=== PATIENT | male | born 1980 | race Caucasian/White ===

== ENCOUNTER 2017-10-13 17:52 | Observation (INO) | payer SELFPAY ==
[~2017-10-13] VITALS: Ht 167.6 cm; Wt 76.0 kg
[~2017-10-13 17:52] MED LIST: 1-ME1LIQ PO; ALUM5LIQ PO; CLON.2 PO; DICY1TAB26 PO; ENAL10TA7 PO; HYDR12.56 PO; METH5SOL3 PO; MINO100T PO; MOBI15TA PO; NAPR550 PO; OXYC15TA PO; RANI150 PO
[2017-10-13 17:56] VITALS: BP 174/106; PULSE 70; RESP 20; TEMP 98.7; O2SAT 98
[2017-10-13] MEDS ORDERED: CLON0.2T PO (18:21)
[2017-10-13] MEDS ORDERED: HYDR12.57 PO (18:21)
[2017-10-13] MEDS ORDERED: ROXI30TA14 PO (18:21)
[2017-10-13] MEDS ORDERED: ATEN25TA PO (18:21)
[2017-10-13] MEDS ORDERED: ENAL20TA81 PO (18:21)
--- NOTE | 2017-10-13 18:41 | RADRPT ---
EXAM DATE/TIME: 10/13/2017 18:14 [facility] COMPARISON: No previous studies available for comparison. INDICATIONS : Chest pain. MEDICAL HISTORY : Hypertension. SURGICAL HISTORY : None. ENCOUNTER: Initial ACUITY: 1 day PAIN SCORE: 7/10 LOCATION: Bilateral chest FINDINGS: PA and lateral views of the chest demonstrate the lungs to be symmetrically aerated without evidence of mass, infiltrate or effusion. The cardiomediastinal contours are unremarkable. Osseous structure s are intact. CONCLUSION: No acute disease. Christiano Torres MD on October 13, 2017 at 18:38 Board Certified Radiologist. This report was verified electronically.
[2017-10-13 19:02] LABS: AUTOMATED NEUTROPHIL # 3.1 TH/MM3 (1.8-7.7); BASOPHIL % 0.4 % (0.0-2.0); EOSINOPHIL # 0.1 TH/MM3 (0-0.4); EOSINOPHIL % 1.6 % (0.0-4.0); HEMATOCRIT 38.7 % (39.0-51.0); HEMOGLOBIN 13.3 GM/DL (13.0-17.0); LYMPH % 40.3 % (9.0-44.0); LYMPHOCYTE # 2.6 TH/MM3 (1.0-4.8); MEAN CELL VOLUME 82.3 FL (80.0-100.0); MEAN CORPUSCULAR HEMOGLOBIN 28.2 PG (27.0-34.0); MEAN CORPUSCULAR HGB CONC 34.2 % (32.0-36.0); MEAN PLATELET VOLUME 7.1 FL (7.0-11.0); MONO % 8.5 % (0.0-8.0); MONOCYTE # 0.5 TH/MM3 (0-0.9); NEUT % 49.2 % (16.0-70.0); PLATELET COUNT 180 TH/MM3 (150-450); RED CELL DISTRIBUTION WIDTH 17.5 % (11.6-17.2); WHITE BLOOD COUNT 6.3 TH/MM3 (4.0-11.0)
[2017-10-13] MEDS ORDERED: SODIUM CHLOR 0.9% 1000 ML INJ 1,000 ML IV ONE (19:30)
[2017-10-13] MEDS ORDERED: PROCHLORPERAZINE INJ 10 MG/2 ML VIAL IV PUSH ONE (19:30)
[2017-10-13] MEDS ORDERED: diphenhydrAMINE HCL 50 MG/ML VIAL IV PUSH ONE (19:30)
[2017-10-13 19:32] LABS: ALBUMIN 3.7 GM/DL (3.4-5.0); AST (GOT) 38 U/L (15-37); BICARBONATE 26.2 MEQ/L (21.0-32.0); BLOOD UREA NITROGEN 14 MG/DL (7-18); CALCIUM 8.9 MG/DL (8.5-10.1); CHLORIDE 110 MEQ/L (98-107); CREATININE 0.85 MG/DL (0.60-1.30); GLOMERULAR FILTRATION RATE 101 ML/MIN (>89); GLUCOSE,RANDOM 69 MG/DL (74-106); INTERNATIONAL NORMALIZED RATIO 1.1 RATIO; MAGNESIUM 2.2 MG/DL (1.5-2.5); PROTHROMBIN TIME - PATIENT 10.9 SEC (9.8-11.6); SODIUM (NA) 143 MEQ/L (136-145)
[2017-10-13 19:33] LABS: ALT (GPT) 80 U/L (12-78)
[2017-10-13 19:37] LABS: ALKALINE PHOSPHATASE 68 U/L (45-117); TOTAL BILIRUBIN ADULT 0.3 MG/DL (0.2-1.0); TOTAL PROTEIN 7.5 GM/DL (6.4-8.2); TROPONIN I LESS THAN 0.02 NG/ML (0.02-0.05)
--- NOTE | 2017-10-13 19:37 | PD ---
HPI Chief Complaint: Syncope/Near-Syncope Time Seen by Provider: 19:09 Travel History International Travel<30 days: No Contact w/Intl Traveler<30days: No Traveled to known affect area: No History of Present Illness HPI 37-year-old male presents to the emergency department for evaluation of chest pain, headache, syncopal episode. Patient states that he has been having left- sided chest pain that started this morning. He states it is sharp and stabbing. He denies radiation of the pain. Estimating factors deep breathing. No alleviating factors. He currently rates the chest pain 10/10. Patient also reports a bifrontal headache behind his eyes that started this morning as well. He states he has been getting headaches frequently recently. This headache started this morning, gradually. He currently rates a 10/10, throbbing. No radiation. He states that just prior to arrival, he walked into the kitchen to ask a question and he had a syncopal episode. He was at a standing position. Patient does state that he uses IV drugs, last time was 1 week ago when he used IV Dilaudid. Patient states he has a history of PE. However on further questioning, he states he was here for it. He was here previously with a elevated d-dimer, but he left AMA before CT could be completed. He has no history of actual PE. Patient is not on anticoagulants. He does report history of hypertension. He denies any fevers or chills. No abdominal pain. No vomiting or diarrhea. Moderate severity. PFSH Past Medical History Anxiety: Yes Diminished Hearing: No Hypertension: Yes Musculoskeletal: Yes (Chronic back pain) ?: Not Past Surgical History Surgical History: No Previous Surgery Family History Family Hypercholesterolemia: Yes Social History Alcohol Use: Yes (OCCASIONAL) Tobacco Use: Yes (2 PK A DAY) Substance Use: Yes (dilaudid (last used last week)) Allergies-Medications (Allergen,Severity, Reaction): Coded Allergies: No Known Allergies (Verified , 11/20/15) Reported Meds & Prescriptions Reported Meds & Active Scripts Active Reported Hydrochlorothiazide 12.5 Mg Cap 12.5 Mg PO DAILY Atenolol 25 Mg Tab 12.5 Mg PO DAILY Roxicodone (Oxycodone HCl) 30 Mg Tab 30 Mg PO Q8H PRN Vasotec (Enalapril Maleate) 20 Mg Tab 40 Mg PO DAILY Clonidine (Clonidine HCl) 0.2 Mg Tab 0.2 Mg PO BID Review of Systems Except as stated in HPI: all other systems reviewed are Neg Physical Exam Narrative GENERAL: Well-nourished, well-developed male patient, afebrile. SKIN: Focused skin assessment warm/dry. HEAD: Normocephalic. Atraumatic EYES: No scleral icterus. No injection or drainage. NECK: Supple, trachea midline. No JVD or lymphadenopathy. CARDIOVASCULAR: Regular rate and rhythm without murmurs, gallops, or rubs. Bilateral radial and pedal pulses are 2+. RESPIRATORY: Breath sounds equal bilaterally. No accessory muscle use. Lung sounds are clear to auscultation. GASTROINTESTINAL: Abdomen soft, non-tender, nondistended. MUSCULOSKELETAL: No cyanosis, or edema. BACK: Nontender without obvious deformity. No CVA tenderness. Data Data Last Documented VS Vital Signs Date Time Temp Pulse Resp B/P (MAP) Pulse Ox O2 Delivery O2 Flow Rate FiO2 10/13/17 17:56 98.7 70 20 174/106 (128) 98 Orders Orders Complete Blood Count With Diff (10/13/17 18:00) Comprehensive Metabolic Panel (10/13/17 18:00) B-Type Natriuretic Peptide (10/13/17 18:00) Act Partial Throm Time (Ptt) (10/13/17 18:00) Prothrombin Time / Inr (Pt) (10/13/17 18:00) Magnesium (Mg) (10/13/17 18:00) Ckmb (Isoenzyme) Profile (10/13/17 18:00) Troponin I (10/13/17 18:00) Electrocardiogram (10/13/17 18:00) Chest, Pa & Lat (10/13/17 18:00) D-Dimer (10/13/17 18:17) Sodium Chlor 0.9% 1000 Ml Inj (Ns 1000 M (10/13/17 19:30) Prochlorperazine Inj (Compazine Inj) (10/13/17 19:30) Diphenhydramine Inj (Benadryl Inj) (10/13/17 19:30) Ct Brain W/O Iv Contrast(Rout) (10/13/17 ) Ketorolac Inj (Toradol Inj) (10/13/17 22:00) Aspirin Chew (Aspirin Chew) (10/13/17 22:00) Labs Laboratory Tests Test 10/13/17 18:49 White Blood Count 6.3 TH/MM3 Red Blood Count 4.70 MIL/MM3 Hemoglobin 13.3 GM/DL Hematocrit 38.7 % Mean Corpuscular Volume 82.3 FL Mean Corpuscular Hemoglobin 28.2 PG Mean Corpuscular Hemoglobin Concent 34.2 % Red Cell Distribution Width 17.5 % Platelet Count 180 TH/MM3 Mean Platelet Volume 7.1 FL Neutrophils (%) (Auto) 49.2 % Lymphocytes (%) (Auto) 40.3 % Monocytes (%) (Auto) 8.5 % Eosinophils (%) (Auto) 1.6 % Basophils (%) (Auto) 0.4 % Neutrophils # (Auto) 3.1 TH/MM3 Lymphocytes # (Auto) 2.6 TH/MM3 Monocytes # (Auto) 0.5 TH/MM3 Eosinophils # (Auto) 0.1 TH/MM3 Basophils # (Auto) 0.0 TH/MM3 CBC Comment DIFF FINAL Differential Comment Prothrombin Time 10.9 SEC Prothromb Time International Ratio 1.1 RATIO Activated Partial Thromboplast Time 29.9 SEC D-Dimer Quantitative (PE/DVT) 0.27 MG/L FEU Blood Urea Nitrogen 14 MG/DL Creatinine 0.85 MG/DL Random Glucose 69 MG/DL Total Protein 7.5 GM/DL Albumin 3.7 GM/DL Calcium Level 8.9 MG/DL Magnesium Level 2.2 MG/DL Alkaline Phosphatase 68 U/L Aspartate Amino Transf (AST/SGOT) 38 U/L Alanine Aminotransferase (ALT/SGPT) 80 U/L Total Bilirubin 0.3 MG/DL Sodium Level 143 MEQ/L Potassium Level 3.7 MEQ/L Chloride Level 110 MEQ/L Carbon Dioxide Level 26.2 MEQ/L Anion Gap 7 MEQ/L Estimat Glomerular Filtration Rate 101 ML/MIN Total Creatine Kinase 47 U/L Troponin I LESS THAN 0.02 NG/ML B-Type Natriuretic Peptide 31 PG/ML MDM Medical Decision Making Medical Screen Exam Complete: Yes Emergency Medical Condition: Yes Medical Record Reviewed: Yes Interpretation(s) Last Impressions Chest X-Ray 10/13/17 1800 Signed Impressions: Service Date/Time: Friday, October 13, 2017 18:14 - CONCLUSION: No acute disease. Christiano Torres MD Head CT 10/13/17 0000 Signed Impressions: Service Date/Time: Friday, October 13, 2017 20:02 - CONCLUSION: 1. No acute intracranial abnormalities. Opacification of the right maxillary sinus. Christiano Torres MD Differential Diagnosis ACS versus anxiety versus pleurisy versus PE versus migraine headache versus intracranial abnormality versus electrolyte abnormality versus dehydration versus endocarditis Narrative Course 37-year-old male presents to the emergency department for evaluation of chest pain, headache, syncopal episode. He appears well on exam. He is afebrile. EKG shows sinus rhythm, heart rate 62, no acute ST changes. CBC, CMP, BNP, magnesium, CK, troponin, PTT, PT/INR, d-dimer, chest x-ray, CT of the brain are ordered and pending. Patient is given normal saline 1 L IV bolus, Compazine 10 mg IV, Benadryl 25 mg IV. CBC shows no acute abnormality. CMP shows elevated LFTs with a AST of 38, ALT 80. Magnesium is 2.2. CK is 47. Troponin is less than 0.02. BNP is 31. Coags are unremarkable. D-dimer is 0.27. Chest x-ray shows no acute disease. Ct of the brain is negative. Patient is given Toradol 30 mg IV for headache, aspirin 162 mg p.o. He will be admitted to the hospitalist for chest pain protocol. Diagnosis Primary Impression: Chest pain Qualified Codes: R07.9 - Chest pain, unspecified Additional Impression: Syncope Qualified Codes: R55 - Syncope and collapse Admitting Information Admitting Physician Requests: Observation Marilyn Echeverria Oct 13, 2017 19:37
--- NOTE | 2017-10-13 20:36 | RADRPT ---
EXAM DATE/TIME: 10/13/2017 20:02 [facility] COMPARISON: No previous studies available for comparison. INDICATIONS : Trauma; fall. RADIATION DOSE: 56.35 CTDIvol (mGy) MEDICAL HISTORY : Hypertension. SURGICAL HISTORY : None. ENCOUNTER: Initial ACUITY: 1 day PAIN SCALE: 5/10 LOCATION: cranial TECHNIQUE: Multiple contiguous axial images were obtained of the head. Using automated exposure control and adj ustment of the mA and/or kV according to patient size, radiation dose was kept as low as reasonably a chievable to obtain optimal diagnostic quality images. DICOM format image data is available electro nically for review and comparison. FINDINGS: CEREBRUM: The ventricles are normal for age. No evidence of midline shift, mass lesion, hemorrhage or acute in farction. No extra-axial fluid collections are seen. POSTERIOR FOSSA: The cerebellum and brainstem are intact. The 4th ventricle is midline. The cerebellopontine angle i s unremarkable. EXTRACRANIAL: The visualized portion of the orbits is intact. SKULL: The calvaria is intact. No evidence of skull fracture. CONCLUSION: 1. No acute intracranial abnormalities. Opacification of the right maxillary sinus. Christiano Torres MD on October 13, 2017 at 20:32 Board Certified Radiologist. This report was verified electronically.
--- NOTE | 2017-10-13 21:44 | EKG ---
Date Performed: 10/13/2017 Time Performed: 18:21:43 PTAGE: 37 years EKG: Sinus rhythm NORMAL ECG Compared to prior electrocardiogram, rate has increased PREVIOUS TRACING : 11/20/2015 21.13 DOCTOR: Jai Zurita Interpretating Date/Time 10/13/2017 21:42:51
--- NOTE | 2017-10-13 21:59 | PD ---
Physical Exam Date Seen by Provider: Oct 13, 2017 Narrative Patient presents for the evaluation of syncope, headache and chest pain. Data Data Last Documented VS Vital Signs Date Time Temp Pulse Resp B/P (MAP) Pulse Ox O2 Delivery O2 Flow Rate FiO2 10/13/17 17:56 98.7 70 20 174/106 (128) 98 Orders Orders Complete Blood Count With Diff (10/13/17 18:00) Comprehensive Metabolic Panel (10/13/17 18:00) B-Type Natriuretic Peptide (10/13/17 18:00) Act Partial Throm Time (Ptt) (10/13/17 18:00) Prothrombin Time / Inr (Pt) (10/13/17 18:00) Magnesium (Mg) (10/13/17 18:00) Ckmb (Isoenzyme) Profile (10/13/17 18:00) Troponin I (10/13/17 18:00) Electrocardiogram (10/13/17 18:00) Chest, Pa & Lat (10/13/17 18:00) D-Dimer (10/13/17 18:17) Sodium Chlor 0.9% 1000 Ml Inj (Ns 1000 M (10/13/17 19:30) Prochlorperazine Inj (Compazine Inj) (10/13/17 19:30) Diphenhydramine Inj (Benadryl Inj) (10/13/17 19:30) Ct Brain W/O Iv Contrast(Rout) (10/13/17 ) Ketorolac Inj (Toradol Inj) (10/13/17 22:00) Aspirin Chew (Aspirin Chew) (10/13/17 22:00) Labs Laboratory Tests Test 10/13/17 18:49 White Blood Count 6.3 TH/MM3 Red Blood Count 4.70 MIL/MM3 Hemoglobin 13.3 GM/DL Hematocrit 38.7 % Mean Corpuscular Volume 82.3 FL Mean Corpuscular Hemoglobin 28.2 PG Mean Corpuscular Hemoglobin Concent 34.2 % Red Cell Distribution Width 17.5 % Platelet Count 180 TH/MM3 Mean Platelet Volume 7.1 FL Neutrophils (%) (Auto) 49.2 % Lymphocytes (%) (Auto) 40.3 % Monocytes (%) (Auto) 8.5 % Eosinophils (%) (Auto) 1.6 % Basophils (%) (Auto) 0.4 % Neutrophils # (Auto) 3.1 TH/MM3 Lymphocytes # (Auto) 2.6 TH/MM3 Monocytes # (Auto) 0.5 TH/MM3 Eosinophils # (Auto) 0.1 TH/MM3 Basophils # (Auto) 0.0 TH/MM3 CBC Comment DIFF FINAL Differential Comment Prothrombin Time 10.9 SEC Prothromb Time International Ratio 1.1 RATIO Activated Partial Thromboplast Time 29.9 SEC D-Dimer Quantitative (PE/DVT) 0.27 MG/L FEU Blood Urea Nitrogen 14 MG/DL Creatinine 0.85 MG/DL Random Glucose 69 MG/DL Total Protein 7.5 GM/DL Albumin 3.7 GM/DL Calcium Level 8.9 MG/DL Magnesium Level 2.2 MG/DL Alkaline Phosphatase 68 U/L Aspartate Amino Transf (AST/SGOT) 38 U/L Alanine Aminotransferase (ALT/SGPT) 80 U/L Total Bilirubin 0.3 MG/DL Sodium Level 143 MEQ/L Potassium Level 3.7 MEQ/L Chloride Level 110 MEQ/L Carbon Dioxide Level 26.2 MEQ/L Anion Gap 7 MEQ/L Estimat Glomerular Filtration Rate 101 ML/MIN Total Creatine Kinase 47 U/L Troponin I LESS THAN 0.02 NG/ML B-Type Natriuretic Peptide 31 PG/ML MDM Supervised Visit with JASEN: Yes Narrative Course I, Dr. Saucedo, have reviewed the advance practice practitioner's documentation and am in agreement, met with the patient face to face, made the diagnosis, and the medical decision making was done by me. *My assessment and Findings: Patient is currently awake and alert and fully oriented. Please see Marilyn Echeverria NP's note for laboratory and radiology results, final diagnosis and disposition Diagnosis Primary Impression: Chest pain Qualified Codes: R07.9 - Chest pain, unspecified Additional Impression: Syncope Qualified Codes: R55 - Syncope and collapse Jessica Saucedo MD Oct 13, 2017 21:59
[2017-10-13] MEDS ORDERED: SODIUM CHLORIDE 0.9% FLUSH 10 ML FLUSH IV FLUSH PRN (22:00)
[2017-10-13] MEDS ORDERED: NALOXONE HCL 0.4 MG/ML AMP IV PUSH PRN (22:00)
[2017-10-13] MEDS ORDERED: ASPIRIN 81 MG CHEW TAB CHEW ONE (22:00)
[2017-10-13] MEDS ORDERED: KETOROLAC TROMETHAMINE 30 MG/ML (IVP) VIAL IV PUSH ONE (22:00)
--- NOTE | 2017-10-13 23:44 | HHI.HP ---
[facility] Service [facility] Primary Care Physician Adilson Waldron D.O. Admission Diagnosis chest pain, syncope Diagnoses: (1) Syncope (2) Chest pain Chief Complaint: Severe headache with subsequent syncope Travel History International Travel<30 Days: No Contact w/Intl Traveler <30 Da: No Traveled to Known Affected Are: No History of Present Illness Mr. Mckinley is an unfortunate 37 y/o male with a history of IVDA (last used IV Dilaudid 2 days ago), hypertension, migraine headaches, chronic back pain, and anxiety who presented to the ER for evaluation of headache, syncope with collapse, and subsequent chest pain on 10/13/2017. He was admitted to the hospitalist service for observation for ACS rule out and further work-up. The patient is seen in the CDU. He is lying in bed with a shirt covering his face. He reports waking up this morning with a severe, throbbing headache that is worse than the migraines he usually suffers from. At about 5 PM, he got up to his kitchen to ask his roommate a question and had a syncopal episode with loss of consciousness and collapse. He is uncertain if he hit his head. Following the collapse, he stated he developed left-sided chest discomfort that has remained constant since his collapse. The pain is rated 10 out of 10 notes described as a sharp sawing sensation. It is reproducible with palpation of the chest wall. He reports some nausea and light sensitivity accompanying his headache which is located in the orbital region and he complains of feeling pressure behind his eyes. He has no visual disturbances. He denies any loss of bowel or bladder function with collapse and states that after his roommate helped him to stand up after his fall, he continued to talk to his roommate like nothing had happened. He denies any confusion after the fall. He thought he might of had a pulmonary embolism but on further discussion, that episode occurred here in January 2015. He had initially left AMA from the ER but came back the next day and had a negative CTPA on 01/23/2015. Currently, his d- dimer is normal at 0.27. He reports a general feeling of unwellness over the past month and a half but denies any nausea, vomiting, fever, chills, or abdominal pain. He reports that he has been experiencing his normal migraine headaches but no headaches like the one he had this morning. He asked if he could take his normal pain medication oxycodone 30 mg as ordered by his pain management physician and states that he has it in his pocket during the time of my visit. He willingly surrendered his pain medication in original prescription bottles to the RN upon my request and they are dated within the last 30-60 days for both Valium 10 mg every 6 hours as needed and oxycodone 30mg every 6 hours as needed. He is not asking for any additional pain medication but is asking if he can take his normal prescription medications. Medication reconciliation completed. Review of Systems Except as stated in HPI: all other systems reviewed are Neg Past Family Social History Past Medical History Migraines Anxiety Chronic back pain Hypertension . Past Surgical History Denies any surgeries . Reported Medications . Reported Meds & Active Scripts Active Reported Hydrochlorothiazide 12.5 Mg Cap 12.5 Mg PO DAILY Atenolol 25 Mg Tab 12.5 Mg PO DAILY Roxicodone (Oxycodone HCl) 30 Mg Tab 30 Mg PO Q8H PRN Vasotec (Enalapril Maleate) 20 Mg Tab 40 Mg PO DAILY Clonidine (Clonidine HCl) 0.2 Mg Tab 0.2 Mg PO BID Allergies: Coded Allergies: No Known Allergies (Verified Allergy, Unknown, 10/13/17) Family History Mother with CVA and hyperlipidemia Grandfather with myocardial infarction and hyperlipidemia . Social History Tobacco: Smokes 1-1/2-2 packs per day for 20 years Alcohol: States he quit drinking 15-20 years ago Illicit Drugs: IV drug abuse with last IV Dilaudid use 2 days ago . Physical Exam Vital Signs Vital Signs Date Time Temp Pulse Resp B/P (MAP) Pulse Ox O2 Delivery O2 Flow Rate FiO2 10/13/17 17:56 98.7 70 20 174/106 (128) 98 Physical Exam GENERAL: This is a disheveled middle-aged male patient, in no apparent distress. SKIN: No rashes. Cool and dry. HEAD: Atraumatic. Normocephalic. EYES: No scleral icterus. No injection or drainage. Periorbital ridge tenderness on the left. ENT: Nose without bleeding, purulent drainage. No maxillary sinus tenderness on the right. Several missing front teeth. NECK: Trachea midline. No JVD. CARDIOVASCULAR: Regular rate and rhythm without murmurs, gallops, or rubs. RESPIRATORY: Coarse breath sounds equal bilaterally. No wheezes, rales, or rhonchi. GASTROINTESTINAL: Abdomen soft, non-tender, nondistended. No guarding. MUSCULOSKELETAL: Extremities without clubbing, cyanosis, or edema. No calf tenderness. NEUROLOGICAL: Awake and alert. Motor and sensory grossly within normal limits. Normal speech. . Laboratory Laboratory Tests Test 10/13/17 18:49 White Blood Count 6.3 Red Blood Count 4.70 Hemoglobin 13.3 Hematocrit 38.7 Mean Corpuscular Volume 82.3 Mean Corpuscular Hemoglobin 28.2 Mean Corpuscular Hemoglobin Concent 34.2 Red Cell Distribution Width 17.5 Platelet Count 180 Mean Platelet Volume 7.1 Neutrophils (%) (Auto) 49.2 Lymphocytes (%) (Auto) 40.3 Monocytes (%) (Auto) 8.5 Eosinophils (%) (Auto) 1.6 Basophils (%) (Auto) 0.4 Neutrophils # (Auto) 3.1 Lymphocytes # (Auto) 2.6 Monocytes # (Auto) 0.5 Eosinophils # (Auto) 0.1 Basophils # (Auto) 0.0 CBC Comment DIFF FINAL Differential Comment Prothrombin Time 10.9 Prothromb Time International Ratio 1.1 Activated Partial Thromboplast Time 29.9 D-Dimer Quantitative (PE/DVT) 0.27 Blood Urea Nitrogen 14 Creatinine 0.85 Random Glucose 69 Total Protein 7.5 Albumin 3.7 Calcium Level 8.9 Magnesium Level 2.2 Alkaline Phosphatase 68 Aspartate Amino Transf (AST/SGOT) 38 Alanine Aminotransferase (ALT/SGPT) 80 Total Bilirubin 0.3 Sodium Level 143 Potassium Level 3.7 Chloride Level 110 Carbon Dioxide Level 26.2 Anion Gap 7 Estimat Glomerular Filtration Rate 101 Total Creatine Kinase 47 Troponin I LESS THAN 0.02 B-Type Natriuretic Peptide 31 Result Diagram: 10/13/17 1849 10/13/17 1849 Imaging Last Impressions Chest X-Ray 10/13/17 1800 Signed Impressions: Service Date/Time: Friday, October 13, 2017 18:14 - CONCLUSION: No acute disease. Christiano Torres MD Head CT 10/13/17 0000 Signed Impressions: Service Date/Time: Friday, October 13, 2017 20:02 - CONCLUSION: 1. No acute intracranial abnormalities. Opacification of the right maxillary sinus. Christiano Torres MD . Caprini VTE Risk Assessment Caprini VTE Risk Assessment: Mod/High Risk (score >= 2) Caprini Risk Assessment Model Point Value = 1 Point Value = 2 Point Value = 3 Point Value = 5 Age 41-60 Minor surgery BMI > 25 kg/m2 Swollen legs Varicose veins or History of unexplained or recurrent spontaneous Oral contraceptives or hormone replacement Sepsis (< 1 month) Serious lung disease, including pneumonia (< 1 month) Abnormal pulmonary function Acute myocardial infarction Congestive heart failure (< 1 month) History of inflammatory bowel disease Medical patient at bed rest Age 61-74 Arthroscopic surgery Major open surgery (> 45 min) Laparoscopic surgery (> 45 min) Malignancy Confined to bed (> 72 hours) Immobilizing plaster cast Central venous access Age >= 75 History of VTE Family history of VTE Factor V Leiden Prothrombin [id number] Lupus anticoagulant Anticardiolipin antibodies Elevated serum homocysteine Heparin-induced thrombocytopenia Other congenital or acquired thrombophilia Stroke (< 1 month) Elective arthroplasty Hip, pelvis, or leg fracture Acute spinal cord injury (< 1 month) Prophylaxis Regimen Total Risk Factor Score Risk Level Prophylaxis Regimen 0-1 Low Early ambulation 2 Moderate Order ONE of the following: *Sequential Compression Device (SCD) *Heparin 5000 units SQ BID 3-4 Higher Order ONE of the following medications: *Heparin 5000 units SQ TID *Enoxaparin/Lovenox 40 mg SQ daily (WT < 150 kg, CrCl > 30 mL/min) *Enoxaparin/Lovenox 30 mg SQ daily (WT < 150 kg, CrCl > 10-29 mL/min) *Enoxaparin/Lovenox 30 mg SQ BID (WT < 150 kg, CrCl > 30 mL/min) AND/OR *Sequential Compression Device (SCD) 5 or more Highest Order ONE of the following medications: *Heparin 5000 units SQ TID (Preferred with Epidurals) *Enoxaparin/Lovenox 40 mg SQ daily (WT < 150 kg, CrCl > 30 mL/min) *Enoxaparin/Lovenox 30 mg SQ daily (WT < 150 kg, CrCl > 10-29 mL/min) *Enoxaparin/Lovenox 30 mg SQ BID (WT < 150 kg, CrCl > 30 mL/min) AND *Sequential Compression Device (SCD) Assessment and Plan Assessment and Plan Mr. Mckinley is an unfortunate 37 y/o male with a history of IVDA (last used IV Dilaudid 2 days ago), hypertension, migraine headaches, chronic back pain, and anxiety who presented to the ER for evaluation of headache, syncope with collapse, and subsequent chest pain on 10/13/2017. He was admitted to the hospitalist service for observation for ACS rule out and further work-up. Syncope with collapse - possibly related to hypoglycemia vs orthostatic hypotension vs seizure- also, patient's narcotic use may be a contributing or causative factor - Right maxillary sinus opacification on head CT, otherwise CT of head was negative for acute intracranial process - We will check orthostatic blood pressure and heart rate - continuous cardiac telemetry to monitor for cardiac arrhythmia - Blood sugar in the ED was mildly hypoglycemic at 69 I asked the nurse to check the patient's blood sugar while I was in the room to examine him and it was 92 - seizure doesn't seem likely given patient's accounting of syncopal episode: patient had no post-ictal confusion, loss of bowel or bladder function, or tongue biting -the patient also denies any history of seizures - consider EEG depending upon observation of patient Atypical chest pain - appears musculoskeletal vs ACS - will check serial EKGs and cardiac enzymes to r/o ACS - initial labs negative and EKG was personally reviewed and shows SR with no ischemic changes Chronic pain - will resume patient's home pain medication - I have personally seen his prescription bottles - recommend Toradol if further analgesia needed Left orbital ridge tenderness with palpation - in light of head CT showing right maxillary opacification and patient's uncertainty about how he fell, will check a CT of facial bones to r/o fractures - patient has no pain with palpation of right maxillary sinus - Await facial CT results, consider antibiotic therapy for sinusitis DVT prophylaxis - early ambulation Discussed Condition With Dr. Aguirre, patient, and RN . Problem Qualifiers (1) Syncope: Qualified Codes: R55 - Syncope and collapse (2) Chest pain: Qualified Codes: R07.9 - Chest pain, unspecified Marley Grossman Oct 13, 2017 23:44
[2017-10-13] MEDS ORDERED: PILL SPLITTER OTHER PRN (23:45)
--- NOTE | 2017-10-14 00:33 | RADRPT ---
EXAM DATE/TIME: 10/13/2017 20:02 [place] COMPARISON: CT BRAIN W/O CONTRAST, October 13, 2017, 20:02. INDICATIONS : Trauma; syncopal episode. RADIATION DOSE: ; Reconstructed from previous dataset, no dose MEDICAL HISTORY : None SURGICAL HISTORY : None. ENCOUNTER: Initial ACUITY: 1 day PAIN SCORE: 5/10 LOCATION: Bilateral orbits TECHNIQUE: Volumetric scanning of the orbits was performed. Using automated exposure control and adjustment of the mA and/or kV according to patient size, radiation dose was kept as low as reasonably achievable t o obtain optimal diagnostic quality images. DICOM format image data is available electronically for review and comparison. FINDINGS: The right maxillary sinus is completely opacified and there is opacification of multiple anterior and mid right ethmoid air cells. PRESEPTAL: The preseptal soft tissues are normal thickness. GLOBES: Normal shape without wall thickening. The lens is grossly intact. EXTRAOCULAR MUSCLES: Symmetric and normal thickness. ORBITAL CHARLES: Intact. The greater wing of the sphenoid is intact. OPTIC NERVES: Normal size. The optic canal is not enlarged. The retroconal fat is normal in appearance. LACRIMAL GLANDS: No evidence of mass. RETROAPIACL REGION: The optic chiasm is grossly intact. The visualized portion of the cavernous sinus and brainstem is i ntact. CONCLUSION: 1. The bony orbit and intraorbital contents are intact. 2. Right maxillary right ethmoid sinus disease. Juan Hope MD on October 14, 2017 at 0:29 Board Certified Radiologist. This report was verified electronically.
[2017-10-14 01:09] LABS: TROPONIN I LESS THAN 0.02 NG/ML (0.02-0.05)
[2017-10-14 01:22] VITALS: BP 119/71; PULSE 62; RESP 14; TEMP 98; O2SAT 98
[2017-10-14 08:02] LABS: TROPONIN I LESS THAN 0.02 NG/ML (0.02-0.05)
[2017-10-14 08:41] VITALS: PULSE 55
[2017-10-14 08:57] VITALS: BP 148/108; PULSE 56; RESP 20; TEMP 97.8; O2SAT 96
[2017-10-14] MEDS ORDERED: SODIUM CHLORIDE 0.9% FLUSH 10 ML FLUSH IV FLUSH SCH (09:00)
[2017-10-14] MEDS ORDERED: ENALAPRIL MALEATE 10 MG TAB PO SCH (09:00)
[2017-10-14] MEDS ORDERED: cloNIDine HCL 0.2 MG TAB PO SCH (09:00)
[2017-10-14] MEDS ORDERED: ATENOLOL 25 MG TAB PO SCH (09:00)
[2017-10-14] MEDS ORDERED: HYDROCHLOROTHIAZIDE 12.5 MG CAP PO SCH (09:00)
[2017-10-14 12:43] VITALS: BP_SYST 137; BP_SYST 141; BP_DIAS 85; BP_DIAS 93; PULSE 61; RESP 20; TEMP 98; O2SAT 98
--- NOTE | 2017-10-14 13:41 | EKG ---
Date Performed: 10/14/2017 Time Performed: 09:07:51 PTAGE: 37 years EKG: SINUS BRADYCARDIA WITH MARKED SINUS ARRHYTHMIA BORDERLINE ECG No significant change from pr ior electrocardiogram. PREVIOUS TRACING : 10/14/2017 01.20 DOCTOR: Jai Zurita Interpretating Date/Time 10/14/2017 13:23:25
--- NOTE | 2017-10-14 14:13 | EKG ---
Date Performed: 10/14/2017 Time Performed: 01:20:57 PTAGE: 37 years EKG: Sinus rhythm NORMAL ECG No significant change from prior electrocardiogram. PREVIOUS TRACING : 10/13/2017 18.21 DOCTOR: Jai Zurita Interpretating Date/Time 10/14/2017 14:11:34
== END 2017-10-14 13:35 | disposition left against medical advice (07) ==
LOC: NED 17:52 → NEDA 21:59 → NEPFCDU 22:37
PROVIDERS: ADMIT Hospitalist; ATTEND Hospitalist
DX: R55 Syncope and collapse (principal); R07.89 Other chest pain; I10 Essential (primary) hypertension; R00.1 Bradycardia, unspecified; R94.31 Abnormal electrocardiogram [ECG] [EKG]; M54.9 Dorsalgia, unspecified; G89.29 Other chronic pain; F41.9 Anxiety disorder, unspecified; R51 Headache; F19.90 Other psychoactive substance use, unspecified, uncomplicated; F17.200 Nicotine dependence, unspecified, uncomplicated; Z79.899 Other long term (current) drug therapy
CPT/HCPCS: 70450; 70480; 71046; 80053; 82550; 82948; 83735; 83880; 84484; 85025; 85379; 85610; 85730; 93005; 96374; 96375; 99285; G0378; J0780; J1200; J1885; J7030

== ENCOUNTER 2017-10-28 21:45 | Emergency (ER) | payer SELFPAY ==
[~2017-10-28] VITALS: Ht 168.9 cm; Wt 74.3 kg
[~2017-10-28 21:45] MED LIST changes: -1-ME1LIQ PO; -ALUM5LIQ PO; +ATEN25TA PO; -CLON.2 PO; +CLON0.2T PO; -DICY1TAB26 PO; -ENAL10TA7 PO; +ENAL20TA81 PO; -HYDR12.56 PO; +HYDR12.57 PO; -METH5SOL3 PO; -MINO100T PO; -MOBI15TA PO; -NAPR550 PO; -OXYC15TA PO; -RANI150 PO; +ROXI30TA14 PO
[2017-10-28 23:23] VITALS: BP 152/102; PULSE 78; RESP 18; TEMP 98.6; O2SAT 99
[2017-10-29] MEDS ORDERED: SODIUM CHLOR 0.9% 1000 ML INJ 1,000 ML IV ONE (00:02)
--- NOTE | 2017-10-29 00:02 | PD ---
HPI Chief Complaint: Headache Time Seen by Provider: 23:45 Travel History International Travel<30 days: No Contact w/Intl Traveler<30days: No Traveled to known affect area: No History of Present Illness HPI The patient is a 37-year-old male who complains of a headache intermittently for 15 years. The headache is retro-orbital and he states it is an 8/10. The pain is sharp. He does have some photophobia/phonophobia and nausea without vomiting. He was seen here on October 13 for chest pain and he had a headache at that time. He states that sometimes Topamax helps his headache but he only got sample packs of Topamax. He states the Topamax is not touching the headache today. He went to another emergency department in [facility] and a CAT scan there according to the patient was normal. He denies any focal neurologic change. He admits to smoking 1 pack a day. He does have some sinus discomfort. He does not work, he states he is disabled with chronic back pain. PFSH Past Medical History Asthma: No Blood Disorders: No Anxiety: Yes Heart Rhythm Problems: No Cancer: No Cardiovascular Problems: No High Cholesterol: No Chest Pain: No Congestive Heart Failure: No COPD: No Diabetes: No Diminished Hearing: No Endocrine: No Genitourinary: No Hypertension: Yes Immune Disorder: No Musculoskeletal: Yes (Chronic back pain) Neurologic: No Reproductive: No Respiratory: No Sleep Apnea: No Thyroid Disease: No Family History Family Hypercholesterolemia: Yes Social History Alcohol Use: Yes (OCCASIONAL) Tobacco Use: Yes (2 PK A DAY) Substance Use: Yes (dilaudid (last used last week-iv)) Allergies-Medications (Allergen,Severity, Reaction): Coded Allergies: No Known Allergies (Verified Allergy, Unknown, 10/13/17) Reported Meds & Prescriptions Reported Meds & Active Scripts Active Reported Hydrochlorothiazide 12.5 Mg Cap 12.5 Mg PO DAILY Atenolol 25 Mg Tab 12.5 Mg PO DAILY Roxicodone (Oxycodone HCl) 30 Mg Tab 30 Mg PO Q8H PRN Vasotec (Enalapril Maleate) 20 Mg Tab 40 Mg PO DAILY Clonidine (Clonidine HCl) 0.2 Mg Tab 0.2 Mg PO BID Review of Systems Except as stated in HPI: all other systems reviewed are Neg Physical Exam Narrative GENERAL: The patient is alert, oriented 3 in moderate apparent distress with his headache. His vital signs show blood pressure 152/102 but are otherwise normal. The patient smells of tobacco. SKIN: Focused skin assessment warm/dry. The patient has bilateral forearm needle tracks, most appear fairly recent but none are infected. HEAD: Atraumatic. Normocephalic. EYES: Pupils equal and round. No scleral icterus. No injection or drainage. ENT: No nasal bleeding or discharge. Mucous membranes pink and moist. There is some slight sinus tenderness over the maxillary sinuses to direct palpation and the patient states pressure in this area makes his headache worse. NECK: Trachea midline. No JVD. There is no meningismus and the patient flex his neck fully without any hesitation. CARDIOVASCULAR: Regular rate and rhythm. No murmur appreciated. RESPIRATORY: No accessory muscle use. Clear to auscultation. Breath sounds equal bilaterally. GASTROINTESTINAL: Abdomen soft, non-tender, nondistended. Hepatic and splenic margins not palpable. MUSCULOSKELETAL: No obvious deformities. No clubbing. No cyanosis. No edema. NEUROLOGICAL: Awake and alert. No obvious cranial nerve deficits. Motor grossly within normal limits. Normal speech. PSYCHIATRIC: Appropriate mood and affect; insight and judgment normal. Data Data Last Documented VS Vital Signs Date Time Temp Pulse Resp B/P (MAP) Pulse Ox O2 Delivery O2 Flow Rate FiO2 10/29/17 00:44 16 99 Room Air 10/28/17 23:23 98.6 78 Orders Orders Ecg Monitoring (10/29/17 00:02) Oximetry (10/29/17 00:02) Ketorolac Inj (Toradol Inj) (10/29/17 01:15) Prochlorperazine Inj (Compazine Inj) (10/29/17 01:15) Diphenhydramine (Benadryl) (10/29/17 01:15) [facility] Medical Decision Making Medical Screen Exam Complete: Yes Emergency Medical Condition: Yes Medical Record Reviewed: Yes Differential Diagnosis Sinus headache, migraine headache, tension headache, tension/migraine combination headache, cluster headache Narrative Course It is now 0145 and the patient has some relief with his headache. This is probably a migraine headache, the sinus pressure did not completely reproduce his headache. The patient also has active IV drug abuse Impression: Migraine headache. IV drug abuse Plan: The patient is given Fioricet. He needs to follow-up with his primary care physician. Diagnosis Primary Impression: Migraine headache Additional Impression: IV drug abuse Additional Instructions: The Fioricet may make him somewhat sleepy, do not combine Fioricet with alcohol. Med/Other Pt SpecificInfo: Prescription(s) given Scripts Nlgcnjqhkq-Zpqdjwvwftyen-Pluqxraq (Fioricet) 50-300-40 Mg Cap 1-2 CAP PO Q6H Y for HEADACHE, #21 CAP 0 Refills Prov: Issa Wright MD 10/29/17 Disposition: 01 DISCHARGE HOME Condition: Stable Issa Wright MD Oct 29, 2017 00:02
[2017-10-29] MEDS ORDERED: SODIUM CHLORIDE 0.9% FLUSH 10 ML FLUSH IVF PRN (00:15)
[2017-10-29] MEDS ORDERED: diphenhydrAMINE HCL 50 MG/ML VIAL IVP ONE (00:15)
[2017-10-29] MEDS ORDERED: KETOROLAC TROMETHAMINE 30 MG/ML (IVP) VIAL IVP ONE (00:15)
[2017-10-29] MEDS ORDERED: PROCHLORPERAZINE INJ 10 MG/2 ML VIAL IVP ONE (00:15)
[2017-10-29 00:44] VITALS: RESP 16; O2SAT 99
[2017-10-29] MEDS ORDERED: PROCHLORPERAZINE INJ 10 MG/2 ML VIAL IM ONE (01:15)
[2017-10-29] MEDS ORDERED: KETOROLAC TROMETHAMINE 60 MG/2 ML (IM) VIAL IM ONE (01:15)
[2017-10-29] MEDS ORDERED: diphenhydrAMINE HCL 50 MG CAP PO ONE (01:15)
[2017-10-29] MEDS ORDERED: BUTA1CAP PO (01:48)
[2017-10-29 01:56] VITALS: BP 136/89
== END 2017-10-29 02:01 | disposition home or self-care (01) ==
LOC: PHED 21:45
DX: G43.909 Migraine, unspecified, not intractable, without status migrainosus (principal); F19.10 Other psychoactive substance abuse, uncomplicated; F17.210 Nicotine dependence, cigarettes, uncomplicated; G89.29 Other chronic pain; M54.9 Dorsalgia, unspecified; F41.9 Anxiety disorder, unspecified; I10 Essential (primary) hypertension
CPT/HCPCS: 96372; 99283; J0780; J1885; Q0163

== ENCOUNTER 2017-11-10 23:33 | Emergency (ER) | payer SELFPAY ==
[~2017-11-10 23:33] MED LIST changes: +BUTA1CAP PO
[2017-11-10 23:50] VITALS: BP 141/100; PULSE 78; RESP 18; TEMP 98.5; O2SAT 100
[2017-11-11] MEDS ORDERED: PROPARACAINE HCL 0.5% OPHT SOLN 15 ML BTL EACH EYE ONE (02:00)
--- NOTE | 2017-11-11 02:08 | PD ---
HPI Chief Complaint: Eye Problems/Injury Time Seen by Provider: 01:48 Travel History International Travel<30 days: No Contact w/Intl Traveler<30days: No Traveled to known affect area: No History of Present Illness HPI 37-year-old white male contact where presents emergency department with complaints of bilateral eye pain for the past week. He states that earlier this past week he developed some redness in both of his eyes. He had taken his contacts out and has not worn them since. He has had progressive pain, burning , redness, matting, photophobia and general malaise. He states that he feels like his eyes are going to explode. He denies any acute blurred vision. He does state that he has difficulty seeing because of the lights. He denies any fever chills. Denies any trauma. He has not been around anyone who is been sick lately. PFSH Past Medical History Narrative Medical Chronic back pain, substance abuse Asthma: No Blood Disorders: No Anxiety: Yes Heart Rhythm Problems: No Cancer: No Cardiovascular Problems: No High Cholesterol: No Chest Pain: No Congestive Heart Failure: No COPD: No Diabetes: No Diminished Hearing: No Endocrine: No Gastrointestinal Disorders: No Genitourinary: No Hypertension: Yes Immune Disorder: No Implanted Vascular Access Dvce: No Musculoskeletal: Yes (Chronic back pain) Neurologic: No Reproductive: No Respiratory: No Sleep Apnea: No Thyroid Disease: No Tetanus Vaccination: < 5 Years Past Surgical History Surgical History: No Previous Surgery Other Surgery: No Family History Family Hypercholesterolemia: Yes Social History Alcohol Use: Yes (OCCASIONAL) Tobacco Use: Yes (1 PK A DAY) Substance Use: Yes (dilaudid (last used last week-iv)) Allergies-Medications (Allergen,Severity, Reaction): Coded Allergies: No Known Allergies (Verified Allergy, Unknown, 11/11/17) Reported Meds & Prescriptions Reported Meds & Active Scripts Active Fioricet (Iglxnwkebx-Dbtnabioxmcmq-Ctiulehx) 50-300-40 Mg Cap 1-2 Cap PO Q6H PRN Reported Hydrochlorothiazide 12.5 Mg Cap 12.5 Mg PO DAILY Atenolol 25 Mg Tab 12.5 Mg PO DAILY Roxicodone (Oxycodone HCl) 30 Mg Tab 30 Mg PO Q8H PRN Vasotec (Enalapril Maleate) 20 Mg Tab 40 Mg PO DAILY Clonidine (Clonidine HCl) 0.2 Mg Tab 0.2 Mg PO BID Review of Systems Except as stated in HPI: all other systems reviewed are Neg General / Constitutional: Positive: Fever, Chills Eyes: Positive: Blurred Vision, Photophobia, Drainage, Redness, Foreign Body Sensation, Pain, Tearing, Visual changes Physical Exam Narrative GENERAL: Well-developed, well-nourished in no acute distress. Nontoxic appearing. HEAD: Normocephalic, atraumatic. EYES: Pupils equal round and reactive. Extraocular motions intact. No scleral icterus. Bilateral injection and scant drainage. Alcaine is instilled in both eyes. Lids are flipped. No foreign body seen. Alcaine is instilled in both eyes with resolution of pain. Lids are flipped and no foreign body seen. Fluorescein stain reveals superficial abrasions across the anterior portion of the eyes bilaterally. I see no ulcer. ENT: TMs clear without erythema. The external auditory canals clear. Nose: clear . Posterior pharynx is pink and moist. No tonsillar edema or exudate. Uvula midline. Airway patent. NECK: Trachea midline.Supple, nontender, moves head freely. No central bony tenderness or spasm. CARDIOVASCULAR: Regular rate and rhythm without murmurs, gallops, or rubs. RESPIRATORY: Clear to auscultation. Breath sounds equal bilaterally. No wheezes , rales, or rhonchi. GASTROINTESTINAL: Abdomen soft, non-tender, nondistended. No hepato-splenomegaly , or palpable masses. No guarding. EXTREMITIES: No clubbing, cyanosis, or edema. No joint tenderness, effusion, or edema noted. BACK: Nontender without deformity or crepitance. No flank tenderness. Data Data Last Documented VS Vital Signs Date Time Temp Pulse Resp B/P (MAP) Pulse Ox O2 Delivery O2 Flow Rate FiO2 11/10/17 23:50 98.5 78 18 141/100 (114) 100 [facility] Medical Decision Making Medical Screen Exam Complete: Yes Emergency Medical Condition: Yes Medical Record Reviewed: Yes Differential Diagnosis MDM: High Differential diagnoses: Acute conjunctivitis (bacterial, viral, allergic, traumatic), glaucoma, iritis, traumatic globe injury, foreign body, corneal abrasion, corneal ulcer, diabetic retinopathy, photokeratitis, herpes keratitis , CMV retinitis Narrative Course Patient has bilateral corneal abrasions most likely from contact wearing. He has been constantly rubbing his eyes. This is bilateral corneal abrasions, iritis Diagnosis Primary Impression: Bilateral corneal abrasions Additional Impression: Iritis Referrals: Renetta Crawley MD Additional Instructions: Rest. Take medication as directed. No rubbing. Follow-up with ophthalmology the next 1-2 days. Med/Other Pt SpecificInfo: Prescription(s) given Disposition: 01 DISCHARGE HOME Condition: Stable Christiano Navarro Nov 11, 2017 02:08
[2017-11-11] MEDS ORDERED: OCUF0.3D EACH EYE (02:09)
[2017-11-11] MEDS ORDERED: DICL0.1S EACH EYE (02:09)
== END 2017-11-11 02:18 | disposition home or self-care (01) ==
LOC: NEPD 23:33
DX: S05.01XA Injury of conjunctiva and corneal abrasion without foreign body, right eye, initial encounter (principal); S05.02XA Injury of conjunctiva and corneal abrasion without foreign body, left eye, initial encounter; H20.9 Unspecified iridocyclitis; X58.XXXA Exposure to other specified factors, initial encounter
CPT/HCPCS: 99283